=== PATIENT | male | born 1965 | race Caucasian/White ===

== ENCOUNTER → 2024-03-05 13:23 | Outpatient (REF) | payer BC, SELFPAY | LOC: PAVMRI 13:23 | PROVIDERS: ATTENDING PHYSICIAN Psychiatry & Neurology Neurology; FAMILY PHYSICIAN Physician Assistant Medical | DX: G35 Multiple sclerosis (principal) | CPT/HCPCS: 70551 ==

== ENCOUNTER → 2024-08-27 08:43 | Outpatient (REF) | payer BC, SELFPAY | LOC: HWRAD 08:43 | PROVIDERS: ATTENDING PHYSICIAN Family Medicine | DX: K21.9 Gastro-esophageal reflux disease without esophagitis (principal) | CPT/HCPCS: 74022 ==

== ENCOUNTER → 2025-01-06 18:00 | Outpatient (REF) | payer BC, SELFPAY | LOC: PAVMRI 18:00 | PROVIDERS: ATTENDING PHYSICIAN Psychiatry & Neurology Neurology; FAMILY PHYSICIAN Family Medicine | DX: G35 Multiple sclerosis (principal) | CPT/HCPCS: 70551; 72141 ==